=== PATIENT | female | born 1960 ===

== ENCOUNTER 2016-09-19 09:09 | Day surgery (SDC) | payer OTHER ==
[2016-09-18 08:25] VITALS: BMI 25.7
--- NOTE | 2016-09-19 11:11 | CP.SDSHP ---
Same Day Surgery H & P - History Proposed Procedure: US guided FNA of left thyroid nodule Pre-Op Diagnosis: left thyroid nodule - Allergies Allergies: Allergies ciprofloxacin [From Cipro] Allergy (Intermediate, Verified 09/18/16 08:25) RASH Penicillins Allergy (Intermediate, Verified 09/18/16 08:25) RASH propylthiouracil Allergy (Intermediate, Verified 09/18/16 08:25) RASH - Physical Exam Vital Signs: Vital Signs 09/19/16 09:24 Temperature 98.5 F Pulse Rate 55 L Respiratory 20 Rate Blood Pressure 119/79 O2 Sat by Pulse 98 Oximetry Mental Status: Alert & Oriented x3 Neuro: WNL Heart: WNL - Impression Impression: Pt with 3 cm mixed solid and cystic nodule. Pt. Evaluated Today:Candidate for Anesthesia & Procedure: No - Date & Time Date: 09/19/16 Time: 10:20 Short Stay Discharge - Short Stay Discharge Admitting Diagnosis/Reason for Visit: THYROID NODULE
--- NOTE | 2016-09-19 11:12 | PCM.SURG1 ---
Surgeon's Initial Post Op Note - Surgeon's Notes Surgeon: Ollie Arizmendi MD Fruit Coordinator: [employer] Type of Anesthesia: Local Pre-Operative Diagnosis: Thyroid nodule Operative Findings: US showed a 3 cm mixed solid and cystic left thyroid nodule Post-Operative Diagnosis: Thyroid nodule Operation Performed: US guided FNA Specimen/Specimens Removed: 25 g FNA x 4 Estimated Blood Loss: EBL {In ML}: 0 Blood Products Given: N/A Drains Used: No Drains Post-Op Condition: Good Date of Surgery/Procedure: 09/19/16 Time of Surgery/Procedure: 11:00
[2016-09-19 11:24] VITALS: BP 129/73; PULSE 87; RESP 18; TEMP 96.7; O2SAT 100
--- NOTE | 2016-09-22 13:28 | US ---
PROCEDURE: Date of Procedure: 09/19/2016 PROCEDURE: 1. Ultrasound guided FNA of left thyroid nodule, CPT 16183 2. Ultrasound guidance for FNA, 79226 Medications: 3cc 1% Lidocaine HISTORY: Enlarged left thyroid nodule. TECHNIQUE: Following informed consent and procedure time-out, a limited ultrasound patient's neck confirmed the presence of a 3.2 cm x 2 cm x cm complex left thyroid nodule which is predominantly solid. After the patient's neck was prepped and draped in the usual sterile fashion, the skin was anesthetized with 1% lidocaine. Ultrasound-guided fine needle aspiration was then performed of the dominant left thyroid nodule. A total of 4 passes were made into the nodule with 25 gauge needle under ultrasound guidance. The FNA specimen was sent for routine pathology. Post biopsy ultrasound showed no hematoma. IMPRESSION: Ultrasound-guided FNA of the dominant left thyroid nodule.
== END 2016-09-19 11:25 | disposition home or self-care (01) ==
LOC: C.SPRAD 09:09
PROVIDERS: ATTEND Radiology Vascular & Interventional Radiology
DX: E04.1 Nontoxic single thyroid nodule (principal)